=== PATIENT | female | born 1980 | race Caucasian/White ===

== ENCOUNTER 2020-01-18 11:38 | Emergency (ER) | payer OTHER, SELFPAY ==
[2020-01-18 11:47] VITALS: BP 133/82; PULSE 77; RESP 21; TEMP 37.3; O2SAT 100
--- NOTE | 2020-01-18 11:58 | ED.GENADULT ---
HPI - General Adult General Chief complaint: Upper Respiratory Infection Stated complaint: cough/congestion Time Seen by Provider: 01/18/20 11:59 Source: patient and RN notes reviewed Mode of arrival: ambulatory Limitations: no limitations History of Present Illness HPI narrative: 39-year-old male presents with complaints of upper respiratory infection, facial congestion, facial pain, cough, and intermittent headaches (not the worst of her life) for the past 14 days. No facial swelling. Dry cough/intermittent productive cough (green-yellow phlegm). Nasal congestion and rhinorrhea. No chest pain or shortness of breath. No exacerbating factors. Denies fever or chills. Denies nausea, vomiting, and abdominal pain. Tolerating po intake well. Remains active. Marisela denies being , L[facility] unknown [facility] [place]. Some parts of this dictation were generated by voice recognition software and may contain typographical and/or grammatical inaccuracies. Related Data Home Medications Medication Instructions Recorded Confirmed L norgest/e.estradiol-e.estrad 1 tablet PO DAILY 01/18/20 01/18/20 [Ashlyna] Allergies Allergy/AdvReac Type Severity Reaction Status Date / Time No Known Allergies Allergy Verified 01/18/20 11:44 Review of Systems Review of Systems: Narrative: CONSTITUTIONAL: Denies fever, chills, sweats. EYES: Denies visual changes, redness, discharge. ENT: Complains of rhinorrhea, congestion, facial congestion and pain, sore throat. Denies otalgia. CARDIOVASCULAR: Denies chest pain, palpitations, edema. RESPIRATORY: Denies dyspnea, wheezing. Complains of dry cough/intermittent productive cough. GASTROINTESTINAL: Denies abdominal pain, nausea, vomiting, diarrhea. GENITOURINARY: Denies dysuria, hematuria, abnormal discharge. SKIN: Denies rash or itching. MUSCULOSKELETAL: Denies acute back pain, joint pain, or myalgia. NEUROLOGIC: Denies numbness or focal weakness. Complains of intermittent LOPEZ. PSYCHIATRIC: Denies anxiety or depression. All systems reviewed & are unremarkable except as noted in HPI and below. [facility] Past Medical History Medical History (Updated 01/19/20 @ 00:00 by Jeevan Her) Compartment syndrome Bilateral lower extremities Lower back pain No significant past medical history Surgical History Surgical History (Updated 01/18/20 @ 12:20 by VIRGEN Moreno) History of cholecystectomy History of fasciotomy Family History Family History (Updated 01/18/20 @ 12:07 by VIRGEN Moreno) Father Asthma Sibling Asthma Social History Social History (Updated 01/18/20 @ 12:08 by VIRGEN Moreno) Smoking status: Former smoker Second hand tobacco smoke exposure: No Alcohol intake: never Substance use: never Living arrangements: with family Occupation/Education: student Gender identity (if verbalized by the patient): Female Comments At time of signature, agree with nurse past medical, surgical, social, and family history. There is no relevant family history pertinent to the presenting complaint. Exam Narrative: Exam Narrative: GENERAL: This is a well-nourished, well-developed patient, in no apparent distress. Talks in full sentences and ambulates with steady gait without dyspnea. HEAD: normocephalic, atraumatic. EYES: PERRL. Sclera clear/white. Vision is grossly intact. EARS: External ears normal, auditory canals clear and without drainage, TMs normal without perforation. Hearing grossly intact. NOSE: External nose normal with no obvious nasal discharge, nares with mild-moderate redness and enlarged turbinates, RT worse. Clear rhinorrhea. SINUSES: Mild-moderate tenderness upon palpation to maxillary and frontal sinuses. THROAT: Mucous membranes moist, posterior pharynx with PND, mild erythema, no exudate, and normal tonsils. No drainage, no concern for Peritonsillar abscess. No drooling, trismus, or neck swelling. NECK: N
== END 2020-01-18 12:24 | disposition home or self-care (01) ==
PROVIDERS: Emergency Provider Nurse Practitioner Family
DX: J32.9 Chronic sinusitis, unspecified (principal); J40 Bronchitis, not specified as acute or chronic; Z87.891 Personal history of nicotine dependence
CPT/HCPCS: 99213; G0463